=== PATIENT | female | born 1995 | race Asian ===

== ENCOUNTER → 2019-10-09 14:46 | Outpatient (CLI) | payer OTHER, SELFPAY ==
--- NOTE | 2019-10-09 14:48 | DI.US.S_ITS ---
PROCEDURE: US PELVIC COMPLETE INDICATIONS: PELVIC PAIN TECHNIQUE: Real-time scanning was performed of the pelvic organs, with image documentation. Additional endovaginal scanning was necessary due to incomplete visualization of the adnexal and endometrial structures by transabdominal scanning. COMPARISON: None. FINDINGS: Transabdominal scanning: Limited scanning through the kidneys shows no hydronephrosis. No pathologic free abdominal or pelvic fluid. Endovaginal scanning: Uterus: Uterus is normal in size at 5.2 x 2.7 x 3.7 cm. The endometrium measures 3.2 mm in combined thickness. Ovaries: Normal ovaries measuring 2.8 x 1.4 x 1.5 cm on the right and 2.5 x 1.8 x 1.5 cm on the left. IMPRESSION: No source for pelvic pain identified sonographically. Dictated by: Jacobo Ramirez [facility] Interpreted: Igor Salcedo MD on 10/09/2019 at 16:40 Approved by: Igor Salcedo M.D. on 10/09/2019 at 17:04
== END ==
PROVIDERS: PCP Family Medicine; Referring Provider Family Medicine; Visit Provider Obstetrics & Gynecology
DX: R10.2 Pelvic and perineal pain (principal)
CPT/HCPCS: 76830; 76856

== ENCOUNTER → 2022-07-06 11:05 | Outpatient (CLI) | payer OTHER, SELFPAY ==
[2022-07-07 11:36] LABS: Candida species Negative (Negative); Gardnerella vaginalis Negative (Negative); Trichomoas vaginalis Negative (Negative)
== END ==
PROVIDERS: PCP Family Medicine; Visit Provider Obstetrics & Gynecology
DX: N89.8 Other specified noninflammatory disorders of vagina (principal)
CPT/HCPCS: 87480; 87510; 87660